=== PATIENT | female | born 1940 | race Caucasian/White ===

== ENCOUNTER 2024-10-31 18:45 | Emergency (ER) | payer MEDICARE, OTHER ==
[2024-10-31] MEDS: fentaNYL 100 MCG/2 ML SDV IM ONE (19:31)
[2024-10-31] MEDS: Ketorolac 30 MG/ML SDV IM ONE (20:07)
[2024-10-31 20:27] VITALS: BP 167/58
[2024-10-31] MEDS: Take Home: Cyclobenzaprine 10 MG Tab, 4 Tab Pack PO ONE (21:02)
[2024-10-31 21:05] VITALS: PULSE 76
== END 2024-10-31 21:16 | disposition home or self-care (01) ==
LOC: DL.ED 18:45
DX: M54.50 Low back pain, unspecified (principal); I10 Essential (primary) hypertension; E78.00 Pure hypercholesterolemia, unspecified; Z88.5 Allergy status to narcotic agent; Z88.8 Allergy status to other drugs, medicaments and biological substances; Z79.82 Long term (current) use of aspirin; Z79.899 Other long term (current) drug therapy
CPT/HCPCS: 72128; 72131; 96372; 99283; 99284; A9270-GY; J3010

== ENCOUNTER 2025-06-18 13:16 | Emergency (ER) | payer MEDICARE, OTHER ==
[2025-06-18 13:43] LABS: BASOPHILS PERCENT AUTO 0.4 % (0.0-1.0); EOSINOPHILS PERCENT AUTO 2.7 % (1.0-3.0); LYMPHOCYTES PERCENT AUTO 22.8 % (20.5-50.1); MONOCYTES PERCENT AUTO 7.7 % (2-8); NEUTROPHILS PERCENT AUTO 66.4 % (42.2-75.2); PLATELET COUNT,PLT 210 10^3/uL (150-450); RED BLOOD CELL COUNT 3.99 10^6/uL (4.2-5.4); WHITE BLOOD CELL COUNT,WBC 5.6 10^3/uL (5.0-10.0)
[2025-06-18 14:00] LABS: INR 1.1 (0.9-1.2); PTT,PARTIAL THROMBOPLSTIN TIME 23.4 SEC (22.0-34.0)
[2025-06-18 14:02] LABS: A/G RATIO 1.0; ALANINE AMINOTRANSFERASE,ALT 22 U/L (14-59); BILIRUBIN TOTAL 0.8 mg/dL (0.2-1.0); BLOOD UREA NITROGEN,BUN 16 mg/dL (7-18); CARBON DIOXIDE,CO2 29 mmol/L (21-32); CHLORIDE,CL 106 mmol/L (98-107); CREATININE 0.94 mg/dL (0.55-1.02); GLUCOSE RANDOM 114 mg/dL (70-99); PROTEIN TOTAL,TP 7.3 g/dL (6.4-8.2)
[2025-06-18 14:12] LABS: ASPARTATE AMNIOTRANSFERASE,AST 27 U/L (15-37); POTASSIUM,K 4.3 mmol/L (3.5-5.1); SODIUM,NA 142 mmol/L (136-145)
[2025-06-18 14:13] LABS: ESTIMATED GFR 60 mL/min (>=60)
[2025-06-18] MEDS ORDERED: Ondansetron 4 MG/2 ML SDV IVPUSH ONE (14:42)
[2025-06-18] MEDS ORDERED: fentaNYL 100 MCG/2 ML SDV IVPUSH ONE (14:42)
[2025-06-18] MEDS ORDERED: fentaNYL 100 MCG/2 ML SDV IV ONE (14:43)
[2025-06-18] MEDS ORDERED: Ondansetron 4 MG/2 ML SDV IV ONE (14:43)
[2025-06-18 15:24] VITALS: BP 177/107; PULSE 74
== END 2025-06-18 15:00 ==
LOC: DL.ED 13:16
DX: S06.0X1A Concussion with loss of consciousness of 30 minutes or less, initial encounter (principal); I10 Essential (primary) hypertension; E78.00 Pure hypercholesterolemia, unspecified; E66.9 Obesity, unspecified; Z68.27 Body mass index [BMI] 27.0-27.9, adult; Z90.49 Acquired absence of other specified parts of digestive tract; Z88.5 Allergy status to narcotic agent; Z88.8 Allergy status to other drugs, medicaments and biological substances; Z88.6 Allergy status to analgesic agent; Z79.899 Other long term (current) drug therapy; W01.198A Fall on same level from slipping, tripping and stumbling with subsequent striking against other object, initial encounter; Y92.511 Restaurant or cafe as the place of occurrence of the external cause
CPT/HCPCS: 36415; 70450; 71045; 72125; 72170; 80053; 83735; 85025; 85610; 85730; 93005; 96374; 99285; J2405; J3010; J7040; J1920